=== PATIENT | female | born 1955 | race African-American/Black ===

== ENCOUNTER → 2016-08-09 | Outpatient (CLI) | payer OTHER, MEDICAID ==
[2013-06-02 11:52] VITALS: BP 126/74
--- NOTE | 2016-08-09 15:56 | MRI ---
HISTORY: Low back pain, spinal stenosis Study: MRI lumbar spine without contrast Comparison: None Technique: Multiplanar multi-sequence MRI of the lumbar spine was obtained. Sagittal T1, sagittal T 2, and stir weighted images, axial T1, and axial T2 images were obtained. Findings: The lumbar spine demonstrates normal alignment with the expected signal characteristics of the bone marrow. The conus of the cord terminates normally. T12 -- L1: No evidence for compressive disc disease. The neural foramina are patent. The joints are normal. L1 -- L2: No evidence for compressive disc disease. The neural foramina are patent. The joints are n ormal. L2 -- L3: No evidence for compressive disc disease. The neural foramina are patent. The joints are n ormal. L3 -- L4: Concentric disk bulging contributes along with bilateral facet arthropathy to lateral rece ss and foraminal narrowing bilaterally of a moderate degree left worse than right. L4 -- L5: Broad-based disk bulging effaces the thecal sac and contributes along with bilateral facet arthropathy to lateral recess and foraminal narrowing bilaterally more prominent than at the level above and more prominent on the left than the right. L5 -- S1: Broad-based disc protrusion contributes along with bilateral facet arthropathy to lateral recess and foraminal narrowing bilaterally more prominent on the right than the left. IMPRESSION: As above Reported By:
== END | disposition home or self-care (01) ==
LOC: RAD 14:12
PROVIDERS: ATTEND Internal Medicine
DX: M48.06 Spinal stenosis, lumbar region (principal); M12.88 Other specific arthropathies, not elsewhere classified, other specified site; M51.27 Other intervertebral disc displacement, lumbosacral region; M51.26 Other intervertebral disc displacement, lumbar region
CPT/HCPCS: 72148